=== PATIENT | male | born 1975 | race American Indian/Alaskan Native ===

== ENCOUNTER 2020-10-08 08:47 | Emergency (ER) | payer MEDICAID, SELFPAY ==
--- NOTE | ~2020-10-08 | XR_ITS ---
EXAMINATION: XR RIBS, LEFT CLINICAL INFORMATION: Pain. COMPARISON: Chest radiograph dated 07/23/2017 TECHNIQUE: PA view of the chest and 3 views of the left ribs. FINDINGS: No airspace consolidation. No pleural effusion or pneumothorax. Stable cardiomediastinal silhouette. There is a subacute/chronic-appearing fracture at the lateral aspect of the left 10th rib. No acute displaced fracture. No lytic or blastic osseous lesion. No abnormal soft tissue calcification. XR/XR ribs LT min 3V w CXR1V IMPRESSION: Subacute/chronic-appearing fracture at the lateral aspect of the left 10th rib. No acute, displaced fracture.
[2020-10-08 08:52] VITALS: BP 126/76; PULSE 75; O2SAT 99
--- NOTE | 2020-10-08 08:55 | ECG_ITS ---
Test Reason : RIB PAIN Blood Pressure : / mmHG Vent. Rate : 066 BPM Atrial Rate : 066 BPM P-R Int : 140 ms QRS Dur : 088 ms QT Int : 412 ms P-R-T Axes : 030 083 056 degrees QTc Int : 431 ms Normal sinus rhythm Normal ECG No previous ECGs available Referred By: Elana Jasmine Electronically Signed By:DAYSI LARA
[2020-10-08 09:00] VITALS: BP 111/58; PULSE 69; RESP 18; TEMP 36.7; O2SAT 97; BMI 18.1
--- NOTE | 2020-10-08 09:12 | ED.GENADULT ---
HPI - General Adult General Chief complaint: General Medical Stated complaint: LET RIB PAIN, ? FX, NO RECENT FALL PER EMS Time Seen by Provider: 10/08/20 08:55 History of Present Illness HPI narrative: Patient complains of left-sided rib pain, he injured the rib several months ago it got better and then his friend cracked his back squeezing his ribcage any felt a sharp crack and increased pain in that left mid rib area, pain is worse with movement, worse with breathing and worse when touched Related Data Allergies Allergy/AdvReac Type Severity Reaction Status Date / Time No Known Allergies Allergy Verified 10/08/20 09:05 [No Known Allergies*] Review of Systems Review of Systems: Positive for left rib pain Negatives are no fever no chills no dizziness no weakness no neck pain no shortness of breath no palpitations no abdominal pain no nausea or vomiting Yes all other systems are reviewed and are negative [facility] Past Medical History Source: nursing notes reviewed Medical History (Updated 10/09/20 @ 00:00 by Background Daemon) Hernia Social History Social History Advance Directives: No Advance Directives Information Provided: No Physical Exam Vital Signs: Vital Signs: Last Vital Signs Temp 98.0 F 10/08/20 09:00 Pulse 69 10/08/20 09:43 Resp 17 10/08/20 09:43 BP 111/58 L 10/08/20 09:00 Pulse Ox 96 10/08/20 09:43 Body Mass Index 18.1 General appearance no distress, A&O x3, cooperative The neck is supple and nontender The chest is clear to auscultation bilaterally with full equal symmetrical breath sounds There is tenderness to the left anterior and lateral lower ribcage The abdomen is soft nontender Extremities for range of motion x4 Neuro no focal deficits Course Course Course Narrative: Patient's x-ray showed old fracture in the area of tenderness and pain, but no obvious acute or displaced fracture EKG was a normal sinus rhythm with a rate of 66, DE interval and QRS duration were normal, QT was normal, no acute ischemic changes no ischemic ST changes As patient was very tired he was allowed to sleep for a couple hours in the ER and was given a sandwich when he awoke felt much better and was interacting normally with good gait and balance and was discharged Discharge Plan Discharge Clinical Impression: Closed rib fracture Patient Disposition: Home, Self-Care Additional Instructions: Your x-ray showed an old fracture that was probably injured in your event this morning, the fracture is not displaced and does not appear dangerous, your lungs were normal Use Tylenol as needed Return any worse condition or any concerns and follow with primary doctor Interventions: ED Discharge Assessment Last Done: 10/08/20 14:23 Discharge Date/Time: 10/08/20 14:23
--- NOTE | 2020-10-08 09:18 | PC.NURSE ---
PT DENIES ANY DRUG OR ALCOHOL USE. PT STATES I HAVEN'T SLEPT. PT DROWSY, EASILY AWOKEN WHEN SPOKEN TO. RESP WNL.
[2020-10-08 09:43] VITALS: PULSE 69; RESP 17; O2SAT 96
--- NOTE | 2020-10-08 13:28 | PC.NURSE ---
PT SLEEPING, EASILY AWOKEN, SANDWICH AND CRACKERS OFFERED TO PATIENT. PT CONTINUES TO SLEEP.
--- NOTE | 2020-10-08 13:59 | PC.NURSE ---
PT WOKE UP, USED BATHROOM, ATE SANDWICH AND LEFT ED.
== END 2020-10-08 14:23 | disposition home or self-care (01) ==
PROVIDERS: Emergency Provider Emergency Medicine
DX: S22.32XA Fracture of one rib, left side, initial encounter for closed fracture (principal); W50.0XXA Accidental hit or strike by another person, initial encounter; Y93.83 Activity, rough housing and horseplay; Y92.410 Unspecified street and highway as the place of occurrence of the external cause; Y99.9 Unspecified external cause status
CPT/HCPCS: 71101; 93005; 99283; 99284

== ENCOUNTER 2021-12-21 00:16 | Emergency (ER) | payer MEDICAID, SELFPAY ==
[2021-12-21] VITALS (10 sets, daily range): BP systolic 91–150; BP diastolic 44–90; PULSE 45–88; RESP 10–16; TEMP 36.2–36.6; O2SAT 90–100; BMI 25.1
--- NOTE | 2021-12-21 00:45 | PC.NURSE ---
Patient A&OX3, VSS and when asked about taking any substances prior to arriving in ED, patient refusing to answer. MD aware. Will monitor closely.
--- NOTE | 2021-12-21 01:33 | ED.ALCOHOL ---
HPI - Alcohol General Chief Complaint: ETOH/Substance Use Stated Complaint: OD Time Seen by Provider: 12/21/21 00:20 Mode of arrival: EMS Limitations: no limitations History of Present Illness HPI narrative: Patient comes to the emergency room via EMS. Patient had an overdose. Patient is unwilling to talk, patient received 2 mg of Narcan by EMS and 2 more by PD. Patient is awake, alert, uncooperative, just wants to go to sleep. Vital stable. Related Data Allergies Allergy/AdvReac Type Severity Reaction Status Date / Time No Known Allergies Allergy Verified 12/21/21 00:29 [No Known Allergies*] Review of Systems Review of Systems: Yes Other (Uncooperative) [facility] Past Medical History Medical History (Updated 12/21/21 @ 01:36 by Vivian Self MD) Hernia Overdose Physical Exam ED Vital Signs: Vital Signs - 24 hr 12/21/21 00:25 12/21/21 00:44 Temperature 98 F Pulse Rate 75 78 Respiratory Rate 16 14 Blood Pressure 149/87 H 129/73 Pulse Oximetry 97 99 Oxygen Delivery Method Room Air Room Air BMI result Body Mass Index 25.1 Const Other: Appearance: Alert. Oriented.. Does not seem in any acute distress, somnolent, uncooperative, does not want to talk Eyes: Pupils equal, round and reactive to light. ENT: Pharynx normal. Neck: Normal inspection. Neck supple. No lymph nodes noted. No crepitus CVS: Normal heart rate and rhythm. Pulses normal. Normal S1 and S2 Respiratory: No respiratory distress. Breath sounds normal. No Wheezing. No rales Abdomen: Soft and nontender. No rigidity. No distention. Skin: Skin warm and dry. Normal skin color. Normal skin turgor. Extremities: No lower extremity edema. No Lacerations. No Rash Neuro: CN 2 through 12 grossly intact Psych: calm, unwilling to talk Course Course Course Narrative: Home Narcan has been ordered, care team consult pending. Physician observation started at 01:30 Discharge Plan Discharge Clinical Impression: Overdose Patient Disposition: Still a Patient
[2021-12-21] MEDS: 0.9 % Sodium Chloride 1,000 ML 999 ML IV ×3 (03:17→10:34)
[2021-12-21 05:39] LABS: Appearance Urine CLEAR; Color Urine YELLOW; Glucose Urine UA 250 MG/DL (NEG); Leukocyte Esterase Urine NEG (NEG); Nitrite Urine NEG (NEG); PH 6.5 (5.0-8.0); Urine Blood NEG (NEG); Urine Ketones 5 MG/DL (NEG); Urine Protein NEG (NEG-TRACE)
[2021-12-21 05:57] LABS: Fentanyl, urine POSITIVE (Not Detect)
[2021-12-21 05:59] LABS: Amphetamine Screen Urine Not Detected (Not Detect); Barbiturates, Urine Not Detected (Not Detect); Benzodiazepines Screen Urine Not Detected (Not Detect); Cannabinoid Screen Urine POSITIVE (Not Detect); Cocaine Screen Urine POSITIVE (Not Detect); Opiate Screen Urine POSITIVE (Not Detect); Phencyclidine Screen Urine Not Detected (Not Detect)
--- NOTE | 2021-12-21 07:15 | PC.NURSE ---
patient was able to be aroused . alert to self and date of . pupils sluggish . lungs clear . bowels active in all 4 quadrants . Patient is hypotensive at 98/41 , 1 liter of fluids ordered and hung . patient sinus Crow on monitor at 50 . patient aware of plan of care .
--- NOTE | 2021-12-21 08:25 | MHC.RECOVSUP ---
Recovery Support note: Patient is a 46 year old [place] speaking male who presented to [facility] ED after an accidental overdose. This publicity writer met with patient to offer SUDE however patient was not engaged in consult at this time. Patient reported he does not use heroin often but does remember using yesterday. Patient stopped answering questions. This publicity writer will return prior to discharge to offer SUDE again.
--- NOTE | 2021-12-21 10:36 | PC.NURSE ---
Patient vitals improved after fluids . BP 100/67 Patient awake and alert x4 . sitting up eating in bed . tolerating food and fluids well . patient states he at baseline is hypotensive . patient aware of plan of care .
[2021-12-21] MEDS: Naloxone HCl Nasal TAKE HOME 4 MG SPRAY NOSTRILALT (11:00)
== END 2021-12-21 11:06 | disposition home or self-care (01) ==
PROVIDERS: Emergency Medicine; Emergency Provider Emergency Medicine Emergency Medical Services
DX: T40.1X1A Poisoning by heroin, accidental (unintentional), initial encounter (principal); Y92.9 Unspecified place or not applicable; Z79.899 Other long term (current) drug therapy
CPT/HCPCS: 80307; 81003; 96360; 96361; 99285

== ENCOUNTER 2023-07-22 00:09 | Emergency (ER) | payer SELFPAY ==
[2023-07-22] VITALS (8 sets, daily range): BP systolic 92–134; BP diastolic 53–76; PULSE 43–86; RESP 16–18; TEMP 36.4–37; O2SAT 13–100; BMI 18.4
--- NOTE | ~2023-07-22 | US_ITS ---
EXAMINATION: US right inguinal area, LIMITED/FOLLOW UP CLINICAL INFORMATION: Pain in the right inguinal area of questionable hernia COMPARISON: None available. TECHNIQUE: Targeted sonographic evaluation of right inguinal area FINDINGS: Targeted sonographic evaluation of right inguinal area demonstrates no evidence of herniations or masses. There are few lymph nodes with the largest homogeneous hypoechoic 3.7 x 0.4 x 0.7 cm lymph node. US/US pelvic limited IMPRESSION: No evidence of hernia. Right inguinal lymphadenopathy.
--- NOTE | ~2023-07-22 | CT_ITS ---
EXAMINATION: CT ABDOMEN AND PELVIS WITHOUT CONTRAST CLINICAL INFORMATION: Right lower quadrant pain and discomfort COMPARISON: Ultrasound pelvis same date TECHNIQUE: Multidetector volumetric imaging was performed from the superior aspect of the liver through the pubic symphysis. Sagittal and coronal reformatted images were obtained on the technologist's workstation. This CT examination was performed using dose optimization techniques as appropriate, variously including the following: *Automated exposure control *Adjustment of mA and/or kV according to patient size (this includes techniques or standardized protocols for targeted exams where dose is matched to indication/reason for exam; i.e. extremities or head) *Use of iterative reconstruction technique DLP: 222 mGy-cm FINDINGS: LUNG BASES: The visualized lung bases are unremarkable. LIVER, GALLBLADDER, AND BILIARY TREE: The liver is normal in size, shape, and attenuation. No focal hepatic lesion or biliary ductal dilatation is present. The gallbladder is unremarkable with no evidence of radiopaque gallstones, gallbladder wall thickening, or obvious pericholecystic inflammatory changes. PANCREAS: The margins of the pancreas is obscured due to the paucity of intra-abdominal fat and lack of oral contrast. SPLEEN: Unremarkable. ADRENAL GLANDS: Unremarkable. KIDNEYS AND URETERS: The kidneys are normal in size, shape, and attenuation. No hydronephrosis, hydroureter, or calculi seen. No perinephric stranding. BLADDER: Decompressed thus not clearly evaluated. GASTROINTESTINAL TRACT: The rectal vault is distended with feces. There is a large stool burden. There appears to be bowel wall thickening with a large stool burden the ascending colon. There is either redundant colon are subtle intussusception present in the ascending colon. There may be some high density material in the region of the appendix. Given the patient's symptoms I would recommend repeating this examination with oral and IV contrast insuring that there is prompt opacification of the entire colon. ABDOMINAL WALL: Small right inguinal hernia. Bowel does not participate. LYMPH NODES: Normal. VASCULAR: Minor atherosclerotic change in the iliacs. PELVIC VISCERA: Unremarkable. OSSEOUS STRUCTURES: Unremarkable. CT/CT abdomen pelvis wo IV con IMPRESSION: Limited evaluation of the pancreas and colon. I would recommend repeating this examination, with oral and IV contrast to ensure appropriate contrast opacification of the ascending colon and peripancreatic soft tissues. Fleischner guidelines were followed.
--- NOTE | ~2023-07-22 | CT_ITS ---
EXAMINATION: CT ABDOMEN AND PELVIS WITH CONTRAST CLINICAL INFORMATION: Right lower quadrant pain. COMPARISON: CT abdomen pelvis 07/22/2023. The study was done without contrast TECHNIQUE: Multidetector volumetric images were obtained from the superior aspect of the liver through the pubic symphysis following administration 85 mL of Omnipaque 350 intravenous contrast. Sagittal and coronal reformatted images were obtained on the technologist's workstation. Oral contrast: Yes This CT examination was performed using dose optimization techniques as appropriate, variously including the following: *Automated exposure control *Adjustment of mA and/or kV according to patient size (this includes techniques or standardized protocols for targeted exams where dose is matched to indication/reason for exam; i.e. extremities or head) *Use of iterative reconstruction technique DLP: 194 mGy-cm FINDINGS: LUNG BASES: The visualized lung bases are unremarkable. LIVER, GALLBLADDER, AND BILIARY TREE: The liver is normal in size, shape, and attenuation. No focal hepatic lesion or biliary ductal dilatation is present. The gallbladder is unremarkable with no evidence of radiopaque gallstones, gallbladder wall thickening, or obvious pericholecystic inflammatory changes. PANCREAS: The pancreas is now very well delineated. The pancreatic soft tissues normal. Pancreas itself is normal. SPLEEN: Unremarkable. ADRENAL GLANDS: Unremarkable. KIDNEYS AND URETERS: The kidneys are normal in size, shape, and attenuation. No hydronephrosis, hydroureter, or calculi seen. No perinephric stranding. BLADDER: Unremarkable. GASTROINTESTINAL TRACT: Large stool burden the colon. No bowel obstruction or right or left lower quadrant inflammatory change. There is still observed in the ascending colon but no evidence for mass or intussusception. Appendix normal. ABDOMINAL WALL: No significant hernia is appreciated. LYMPH NODES: Normal. VASCULAR: Unremarkable. PELVIC VISCERA: Unremarkable. OSSEOUS STRUCTURES: Unremarkable. CT/CT abdomen pelvis w IV con IMPRESSION: Unremarkable exam. Appendix and colon appear normal.. No evidence for pancreatitis or peripancreatic abnormality. Fleischner guidelines were followed.
--- NOTE | 2023-07-22 06:49 | ED_ITS ---
HPI - Male Genitourinary General Chief complaint: Urogenital-Male Stated complaint: PELVIC HERNIA Time Seen by Provider: 07/22/23 06:49 Source: patient Mode of arrival: ambulatory Limitations: no limitations History of Present Illness HPI Narrative: 48 year old male presents w/ concerns that his hernia is acting up. Patient has hx of hernias in the past last time this was 1.5 years ago and felt similar. Patient reports intermittent discomfort to the right-sided inguinal region in suprapubic region. He reports that this is where he had a hernia in the past. Currently he does not have pain. He reports the pain fluctuates in intensity and comes and goes. Patient denies fevers, chills, nausea, vomiting, urinary symptoms, difficulties with bowel movements, chest pain, shortness of breath, abdominal pain, fevers and chills. Related Data Allergies Allergy/AdvReac Type Severity Reaction Status Date / Time No Known Allergies Allergy Verified 12/21/21 00:29 [No Known Allergies*] Review of Systems 2 Review of Systems: Constitutional : No Weight loss, No Fever, No Chills, No Fatigue, No Malaise ENT/Mouth : No sore throat, No Rhinorrhea Eyes: No Eye Pain, No Swelling, No Redness Cardiovascular : No Chest Pain, No SOB, No Dyspnea on Exertion, No Orthopnea, No Edema, No Palpitations Respiratory : No Cough, No Sputum, No Wheezing Gastrointestinal : No Nausea, No Vomiting, No Diarrhea, No Constipation, No abdominal Pain, No Hematochezia, No Melena Genitourinary : No Dysuria, No Urinary Frequency, No Hematuria, + hernia Musculoskeletal : No joint pain, No Myalgias, No Joint Swelling Skin : No Skin Lesions, No rash Neuro : No Weakness, No Numbness, No Dizziness, No Headache Psych : No Anxiety/Panic, No Depression All other systems reviewed and are negative Yes all other systems are reviewed and are negative [facility] Past Medical History Attestation statement: The following information was validated with the patient. Source: old records reviewed and nursing notes reviewed Medical History Overdose Hernia Social History Social History Smoked in Last 30 Days: Yes Use of substances other than those prescribed or required for medical reasons: No Advance Directives: No Advance Directives Information Provided: No Physical Exam 2 Vital Signs: Vital Signs: Last Vital Signs Temp 97.7 F 07/22/23 12:36 Pulse 48 L 07/22/23 12:36 Resp 16 07/22/23 12:36 BP 93/57 L 07/22/23 12:36 Pulse Ox 100 07/22/23 12:36 O2 Del Method Room Air 07/22/23 12:36 BMI result Body Mass Index 18.4 vss Appearance: Alert.? Oriented X3.? No acute distress.? Head: Normocephalic, atraumatic, no step-offs or deformities Eyes: Pupils equal, round and reactive to light.? CVS: Normal heart rate and rhythm.? Pulses normal.? Respiratory: No respiratory distress.? Breath sounds normal.? Abdomen: Soft and nontender.? Skin: Skin warm and dry.? Normal skin color.? Normal skin turgor.? 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 No overlying bulging or palpated lumps/masses. Extremities: No lower extremity edema.? No calf ttp. 5/5 strength to bilateral upper and lower extremities Neuro: Oriented X 3.? No motor deficit.? No sensory deficit. CN 2-12 intact Course Reevaluation(s) Reevaluation #1: Ultrasound pelvis with no evidence of hernia right inguinal lymphadenopathy noted. CT scan will be ordered as patient did have right lower quadrant tenderness on exam. UA still pending. Patient calm, comfortable, not reporting pain. Time: 08:29 Reevaluation #2: CT scan with limited evaluation of the pancreas and colon secondary to no IV contrast however otherwise unremarkable. There is a small right inguinal hernia noted which could be contributing to patient's discomfort. Slight constipation. Time: 11:00 Reevaluation #3: CBC unremarkable. Chemistry no acute findings requiring intervention. UA unremarkable. CT abdomen pelvis repeat with contrast unremarkable. Patient to be discharged home. Surgical follow-up for hernia if needed Educated patient on diagnosis and treatment plan, answered all question, patient verbalizes understanding. At this time patient will be discharged home, advised to return with new or worsening symptoms. Educated on worrisome signs and symptoms and when to return. At this time I feel comfortable discharge home. Time: 14:13 Medications Administered Discontinued Medications Generic Name Dose Route Start Last Admin Trade Name Arabella PRN Reason Stop Dose Admin Barium Sulfate 675 ml 07/22/23 13:39 07/22/23 13:40 Barium Sulfate Oral (Vanilla) 450 Ml Oral.Susp PO 07/22/23 13:40 675 ml ONCE ONE Administration Iohexol 85 ml 07/22/23 13:40 07/22/23 13:40 Iohexol 350 Mg/Ml 75 Ml Infus..Btl IV 07/22/23 13:41 85 ml ONCE ONE Administration Medical Decision Making Medical Decision Making [facility] Narrative: 0648 48 year old male presents w/ concerns of hernia to the right groin that is painful intermittently no pain at htis time PE w/ discomfort to palpation of the mons pubis twards the right side. No overlying bulging or palpated lumps/masses. History and physical exam consistent with simple direct inguinal hernia, unlikely strangulation, incarceration. No signs of necrosis, fourniers, celluliits, torsion Plan- US and UA. No pain at this time - no need for pain meds Differential Diagnosis Differential Diagnoses: The differential diagnosis associated with the presentation includes History and physical exam consistent with simple direct inguinal hernia, unlikely strangulation, incarceration. No signs of necrosis, fourniers, celluliits, torsion Admission/Observation Consideration of admission/observation: Escalation of care including admission/observation considered unlikely Lab Data [facility] Lab Attestation statement: I reviewed the patient's lab results. 07/22/23 11:36 07/22/23 11:36 Labs: Lab Results 07/22/23 07/22/23 Range/Units 08:59 11:36 WBC 8.1 (4.8-10.8) X10*3/uL RBC 4.55 L (4.60-5.80) X10*6/uL Hgb 13.0 L (14.0-18.0) g/dl Hct 40.5 L (42.0-52.0) % MCV 89.0 (80.0-98.0) fL MCH 28.6 (27.0-33.0) pg MCHC 32.1 (31.0-36.0) g/dl RDW 13.8 (11.0-16.0) % Plt Count 261 (160-400) X10*3/uL MPV 9.3 L (9.4-12.4) fL Immature Gran % (Auto) 0.2 (0.0-0.4) % Neut % (Auto) 59.2 (45-73) % Lymph % (Auto) 32.6 (20-40) % Deuel % (Auto) 7.4 (2-11) % Eos % (Auto) 0.1 (0-4) % Baso % (Auto) 0.5 (0-2) % Lymph # (Auto) 2.6 (1.2-4.9) X10*3/uL Deuel # (Auto) 0.6 (0.1-1.2) X10*3/uL Eos # (Auto) 0.0 (0.0-0.4) X10*3/uL Baso # (Auto) 0.0 (0.0-0.2) X10*3/uL Abs Immat Gran (auto) 0.02 (0.00-0.03) X10*3/uL Absolute Neuts (auto) 4.8 (2.0-8.3) x10*3/uL Absolute Nucleated RBC 0.000 (0.0-0.012) X10*3/uL Nucleated RBC % (auto) 0.0 (0.0-0.2) /100WBC Sodium 138 (135-145) mmol/L Potassium 4.6 (3.3-5.1) mmol/L Chloride 105 (96-108) mmol/L Carbon Dioxide 26 (22-29) mmol/L Anion Gap 12 (12-20) BUN 17 H (9-16) mg/dL Creatinine 0.79 (0.5-1.4) mg/dL Estim Creat Clear Calc 98.6 Estimated GFR > 60 Random Glucose 75 (60-115) mg/dL Calcium 9.1 (8.4-10.2) mg/dL Total Bilirubin 0.4 (0.0-1.0) mg/dL AST 28 (5-37) U/L ALT 25 (0-40) U/L Alkaline Phosphatase 41 (39-117) U/L Total Protein 6.6 (6.5-8.0) g/dL Albumin 3.6 (3.5-5.0) g/dL Urine Color Yellow Urine Appearance Cloudy Urine pH 7.5 (5.0-9.0) Ur Specific Cameron 1.025 (1.005-1.025) Urine Protein Negative (Neg-Trace) mg/dL Urine Glucose (UA) Negative (Negative) mg/dL Urine Ketones Negative (Negative) mg/dL Urine Blood Negative (Negative) Urine Nitrite Negative (Negative) Ur Leukocyte Esterase Trace H (Negative) Urine RBC 0-2 (0-2) /HPF Urine WBC 6-10 H (0-5) /HPF Ur Squamous Epith Cells 0-2 (0-2) /HPF Urine Bacteria None Seen (None Seen) Hyaline Casts 0-2 (0-2) /LPF Chlam trachomat DNA PCR NOT DETECTED (Not Detect.) N.gonorrhoeae DNA (PCR) NOT DETECTED (Not Detect.) Independent Interpretation I performed an independent interpretation of an: Ultrasound Radiology Impression Discussion of test interpretation with radiology: I have reviewed the radiologist's reading. Critical Care Time Critical Care Time Critical Care Time: No Discharge Plan Discharge Clinical Impression: Lymphadenopathy, Abdominal pain, lower, Inguinal hernia Patient Disposition: Home, Self-Care Instructions: Lymphadenopathy (ED), Abdominal Pain (ED) Additional Instructions: Take your medications as prescribed. If you were prescribed antibiotics today, it is important that you take your medication to their entirety, do not skip any doses, do not finish them early. Follow-up with your primary care provider this week. Return to the emergency department with new or worsening symptoms. Such as fevers, chills, chest pain, shortness of breath, nausea, vomiting, dizziness, headache, vision changes, lethargy In case of emergency call 911 Your ultrasound showed lymphadenopathy or lymph nodes in your inguinal/groin region. Please follow-up with your PCP in regards to these. Nothing to be done in an emergency department at this time. CT/CT abdomen pelvis w IV con IMPRESSION: Unremarkable exam. Appendix and colon appear normal.. No evidence for pancreatitis or peripancreatic abnormality. Fleischner guidelines were followed. CT/CT abdomen pelvis wo IV con IMPRESSION: Limited evaluation of the pancreas and colon. I would recommend repeating this examination, with oral and IV contrast to ensure appropriate contrast opacification of the ascending colon and peripancreatic soft tissues. GASTROINTESTINAL TRACT: The rectal vault is distended with feces. There is a large stool burden. There appears to be bowel wall thickening with a large stool burden the ascending colon. There is either redundant colon are subtle intussusception present in the ascending colon. There may be some high density material in the region of the appendix. Given the patient's symptoms I would recommend repeating this examination with oral and IV contrast insuring that there is prompt opacification of the entire colon. ABDOMINAL WALL: Small right inguinal hernia. Bowel does not participate. LYMPH NODES: Normal. VASCULAR: Minor atherosclerotic change in the iliacs. PELVIC VISCERA: Unremarkable. OSSEOUS STRUCTURES: Unremarkable. US/US pelvic limited IMPRESSION: No evidence of hernia. Right inguinal lymphadenopathy. Referrals: Physician,Unknown J [Primary Care Provider] - 2 days [facility] [Provider Group] - 3 days Stand Alone Forms: Work/School Release
[2023-07-22 09:06] LABS: Appearance Urine Cloudy; Color Urine Yellow; Glucose Urine UA Negative (Negative); Leukocyte Esterase Urine Trace (Negative); Nitrite Urine Negative (Negative); PH 7.5 (5.0-9.0); Specific Gravity - Urine 1.025 (1.005-1.025); UMIC TRIGGER UACC YES; Urine Blood Negative (Negative); Urine Ketones Negative (Negative); Urine Protein Negative (Neg-Trace)
[2023-07-22 09:09] LABS: Bacteria Urine None Seen (None Seen); Hyaline Casts Urine 0-2 /LPF (0-2); RBC Urine 0-2 /HPF (0-2); Squamous Epithelial Cell Urine 0-2 /HPF (0-2); UACC Culture Trigger YES
[2023-07-22 10:46] LABS: CT PCR NOT DETECTED (Not Detect.); NG PCR NOT DETECTED (Not Detect.)
--- NOTE | 2023-07-22 10:51 | PC.NURSE ---
this rn notified by tech that pt is bradycardic. PA notified. pt is asymptomatic and is resting comfortably, in no apparent distress.
[2023-07-22 11:40] LABS: MANUAL DIFF FLAG NO
[2023-07-22 11:44] LABS: Basophils Percent Auto 0.5 % (0-2); Eosinophils Percent Auto 0.1 % (0-4); Hematocrit 40.5 % (42.0-52.0); Imm Gran Abs Auto 0.02 X10*3/uL (0.00-0.03); Imm Gran Pct Auto 0.2 % (0.0-0.4); Lymphocytes Absolute Auto 2.6 X10*3/uL (1.2-4.9); Lymphocytes Percent Auto 32.6 % (20-40); Mean Corpuscular HGB Conc 32.1 g/dl (31.0-36.0); Mean Corpuscular Hemoglobin 28.6 pg (27.0-33.0); Mean Platelet Volume 9.3 fL (9.4-12.4); Monocytes Absolute Auto 0.6 X10*3/uL (0.1-1.2); Monocytes Percent Auto 7.4 % (2-11); Neutrophils Absolute Auto 4.8 x10*3/uL (2.0-8.3); Neutrophils Percent Auto 59.2 % (45-73); Platelet Count 261 X10*3/uL (160-400); Red Blood Count 4.55 X10*6/uL (4.60-5.80); Red Cell Distribution Width 13.8 % (11.0-16.0); White Blood Count 8.1 X10*3/uL (4.8-10.8)
[2023-07-22 12:07] LABS: Alanine Aminotransferase 25 U/L (0-40); Albumin Level 3.6 g/dL (3.5-5.0); Alkaline Phosphatase 41 U/L (39-117); Anion Gap 12 (12-20); Aspartate Amino Transferase 28 U/L (5-37); Bilirubin Total 0.4 mg/dL (0.0-1.0); Blood Urea Nitrogen 17 mg/dL (9-16); Calcium 9.1 mg/dL (8.4-10.2); Carbon Dioxide 26 mmol/L (22-29); Chloride 105 mmol/L (96-108); Creatinine Clr Calc Pharmacy 98.6; Estimated Glomerular Filt Rate > 60; Glucose Random 75 mg/dL (60-115); Potassium 4.6 mmol/L (3.3-5.1); Sodium 138 mmol/L (135-145); Total Protein 6.6 g/dL (6.5-8.0)
--- NOTE | 2023-07-22 12:56 | PC.NURSE ---
20g iv placed left arm. pt drinking PO IV contrast. no reports of pain. plan of care ongoing
[2023-07-22] MEDS: iohexoL 350 MG/ML 75 ML INFUS..BTL 85 ML IV (13:40)
[2023-07-22] MEDS: Barium Sulfate Oral (Vanilla) 450 ML ORAL.SUSP 675 ML PO (13:40)
== END 2023-07-22 14:30 | disposition home or self-care (01) ==
PROVIDERS: Physician Assistant; Emergency Provider Emergency Medicine
DX: K40.90 Unilateral inguinal hernia, without obstruction or gangrene, not specified as recurrent (principal); R10.30 Lower abdominal pain, unspecified; R59.1 Generalized enlarged lymph nodes; Z79.899 Other long term (current) drug therapy
CPT/HCPCS: 0353U; 36415; 74176; 74177; 76857; 80053; 81001; 85025; 87086; 99284; Q9967

== ENCOUNTER 2023-10-19 11:36 | Emergency (ER) | payer SELFPAY ==
[2023-10-19 11:52] VITALS: BP 105/62; PULSE 64; RESP 16; TEMP 36.4; O2SAT 97; BMI 27.9
--- NOTE | 2023-10-19 12:07 | ED_ITS ---
HPI - General Adult General Chief complaint: ETOH/Substance Use Stated complaint: seeking detox Related Data Allergies Allergy/AdvReac Type Severity Reaction Status Date / Time No Known Allergies Allergy Verified 10/19/23 11:55 [No Known Allergies*] [facility] Past Medical History Medical History Overdose Hernia Physical Exam ED Vital Signs: Vital Signs - 24 hr 10/19/23 11:52 Temperature 97.6 F Pulse Rate 64 Respiratory Rate 16 Blood Pressure 105/62 Pulse Oximetry 97 Oxygen Delivery Method Room Air BMI result Body Mass Index 27.9 Course Course Course Narrative: This is rapid medical exam. Deferred additional HPI, ROS, PE to primary provider. 48 yo male here seeking detox for alcohol, cocaine and heroin. No SI. Will order labs, [facility] Medical Decision Making Lab Data 10/19/23 12:32 10/19/23 12:32 Labs: Lab Results 10/19/23 Range/Units 12:32 WBC 9.7 (4.8-10.8) X10*3/uL RBC 4.72 (4.60-5.80) X10*6/uL Hgb 13.5 L (14.0-18.0) g/dl Hct 42.3 (42.0-52.0) % MCV 89.6 (80.0-98.0) fL MCH 28.6 (27.0-33.0) pg MCHC 31.9 (31.0-36.0) g/dl RDW 14.4 (11.0-16.0) % Plt Count 284 (160-400) X10*3/uL MPV 9.1 L (9.4-12.4) fL Immature Gran % (Auto) 0.2 (0.0-0.4) % Neut % (Auto) 67.2 (45-73) % Lymph % (Auto) 24.6 (20-40) % Bibb % (Auto) 7.5 (2-11) % Eos % (Auto) 0.1 (0-4) % Baso % (Auto) 0.4 (0-2) % Lymph # (Auto) 2.4 (1.2-4.9) X10*3/uL Bibb # (Auto) 0.7 (0.1-1.2) X10*3/uL Eos # (Auto) 0.0 (0.0-0.4) X10*3/uL Baso # (Auto) 0.0 (0.0-0.2) X10*3/uL Abs Immat Gran (auto) 0.02 (0.00-0.03) X10*3/uL Absolute Neuts (auto) 6.5 (2.0-8.3) x10*3/uL Absolute Nucleated RBC 0.000 (0.0-0.012) X10*3/uL Nucleated RBC % (auto) 0.0 (0.0-0.2) /100WBC Sodium 142 (135-145) mmol/L Potassium 4.0 (3.3-5.1) mmol/L Chloride 106 (96-108) mmol/L Carbon Dioxide 32 H (22-29) mmol/L Anion Gap 8 L (12-20) BUN 15 (9-16) mg/dL Creatinine 0.82 (0.5-1.4) mg/dL Estim Creat Clear Calc 129.7 Estimated GFR > 60 Random Glucose 103 (60-115) mg/dL Calcium 9.2 (8.4-10.2) mg/dL Ethyl Alcohol < 10 mg/dL Discharge Plan Discharge Clinical Impression: Substance use Patient Disposition: Left W/O Completing Treatment Print Language: Ghanaian
[2023-10-19 12:35] LABS: MANUAL DIFF FLAG NO
[2023-10-19 12:38] LABS: Basophils Percent Auto 0.4 % (0-2); Eosinophils Percent Auto 0.1 % (0-4); Hematocrit 42.3 % (42.0-52.0); Hemoglobin 13.5 g/dl (14.0-18.0); Imm Gran Abs Auto 0.02 X10*3/uL (0.00-0.03); Imm Gran Pct Auto 0.2 % (0.0-0.4); Lymphocytes Absolute Auto 2.4 X10*3/uL (1.2-4.9); Lymphocytes Percent Auto 24.6 % (20-40); Mean Corpuscular HGB Conc 31.9 g/dl (31.0-36.0); Mean Corpuscular Hemoglobin 28.6 pg (27.0-33.0); Mean Corpuscular Volume 89.6 fL (80.0-98.0); Mean Platelet Volume 9.1 fL (9.4-12.4); Monocytes Absolute Auto 0.7 X10*3/uL (0.1-1.2); Monocytes Percent Auto 7.5 % (2-11); Neutrophils Absolute Auto 6.5 x10*3/uL (2.0-8.3); Neutrophils Percent Auto 67.2 % (45-73); Platelet Count 284 X10*3/uL (160-400); Red Blood Count 4.72 X10*6/uL (4.60-5.80); Red Cell Distribution Width 14.4 % (11.0-16.0); White Blood Count 9.7 X10*3/uL (4.8-10.8)
[2023-10-19 12:55] LABS: Anion Gap 8 (12-20); Blood Urea Nitrogen 15 mg/dL (9-16); Calcium 9.2 mg/dL (8.4-10.2); Carbon Dioxide 32 mmol/L (22-29); Chloride 106 mmol/L (96-108); Creatinine Clr Calc Pharmacy 129.7; Estimated Glomerular Filt Rate > 60; Ethanol < 10 mg/dL; Glucose Random 103 mg/dL (60-115); Sodium 142 mmol/L (135-145)
== END 2023-10-19 18:42 | disposition left against medical advice (07) ==
LOC: HO.ED 18:41
PROVIDERS: Nurse Practitioner Family; Emergency Provider Emergency Medicine
DX: F10.90 Alcohol use, unspecified, uncomplicated (principal); F14.90 Cocaine use, unspecified, uncomplicated; F11.90 Opioid use, unspecified, uncomplicated
CPT/HCPCS: 36415; 80048; 80307; 85025; 99281; 99283

== ENCOUNTER 2024-01-09 18:20 | Emergency (ER) | payer SELFPAY ==
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
--- NOTE | ~2024-01-09 | XR_ITS ---
EXAMINATION: XR FACIAL BONES CLINICAL INFORMATION: Injury COMPARISON: None available. TECHNIQUE: 4 views of the facial bones were obtained. FINDINGS: There has been prior surgery with multiple plates and screws seen around the right maxillary antra and right zygomatic arch. The visualized paranasal sinuses are well aerated without air-fluid levels. No acute fractures are seen. XR/XR facial bones min 3V IMPRESSION: No acute fractures are seen. Postsurgical changes as described above.
[2024-01-09 18:41] VITALS: BP 103/65; PULSE 66; RESP 16; TEMP 36.8; O2SAT 97; BMI 18.7
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
[2024-01-09] MEDS: Morphine Sulfate Immed Release 15 MG TABLET PO (22:35)
--- NOTE | 2024-01-09 22:37 | PC.NURSE ---
pt medicated per MAR for 10 left jaw pain
[2024-01-09 22:39] VITALS: BP 119/74; PULSE 67; RESP 16; TEMP 36.3; O2SAT 99
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
[2024-01-10 02:02] VITALS: BP 129/86; PULSE 60; RESP 16; TEMP 37.6; O2SAT 98
[2024-01-10 02:40] VITALS: BP 129/86; PULSE 60; RESP 16; TEMP 37.6; O2SAT 98
== END 2024-01-10 02:41 | disposition short-term general hospital (02) ==
PROVIDERS: Emergency Provider Internal Medicine
DX: S02.672A Fracture of alveolus of left mandible, initial encounter for closed fracture (principal); Y04.2XXA Assault by strike against or bumped into by another person, initial encounter; Y93.9 Activity, unspecified; Y92.9 Unspecified place or not applicable; Y99.9 Unspecified external cause status
CPT/HCPCS: 70150; 70486; 99285